=== PATIENT | female | born 1940 | race Caucasian/White ===

== ENCOUNTER 2020-09-17 02:24 | Emergency (ER) | payer MEDICARE, OTHER ==
[~2020-09-17 02:24] MED LIST: ASPIRIN CHEWABL81 MG PO; AUGMENTIN 875-1 EACH PO; FLAGYL500 MG PO; HYDRALAZINE HCL50 MG PO; LASIX40 MG PO; LIPITOR40 MG PO; LOPRESSOR100 MG PO; NORVASC5 MG PO; POTASSIUM CHLO10 MEQ PO; PROTONIX40 MG PO; TRANXENE T-TAB7.5 MG PO; ZESTRIL30 MG PO
[2020-09-17 03:55] LABS: HEMOGLOBIN 11.8 gm/dl (12.3-15.3); RED BLOOD COUNT 4.16 M/UL (4.00-5.10); WHITE BLOOD COUNT 9.1 K/UL (4.5-11.0)
[2020-09-17 04:18] LABS: BUN/CREATININE RATIO 17 (0-10)
[2020-09-17] MEDS ORDERED: ZOFRAN ODT 4 MG4 MG SL (06:19)
[2020-09-17] MEDS ORDERED: HYDROCODON-ACE1 EAC4 PO (06:19)
== END 2020-09-17 06:46 | disposition home or self-care (01) ==
LOC: ER1 02:24
PROVIDERS: Emergency Medicine
DX: K85.90 Acute pancreatitis without necrosis or infection, unspecified (principal); I10 Essential (primary) hypertension; E78.5 Hyperlipidemia, unspecified; J44.9 Chronic obstructive pulmonary disease, unspecified; Z90.49 Acquired absence of other specified parts of digestive tract; Z90.710 Acquired absence of both cervix and uterus; Z87.19 Personal history of other diseases of the digestive system
CPT/HCPCS: 80053; 81001; 83690; 85025; 87086; 96374; 96375; 99284; J2270; J2405; Q9967

== ENCOUNTER → 2022-02-02 | Outpatient (CLI) | payer OTHER ==
[~2022-02-02] MED LIST changes: +HYDROCODON-ACE1 EAC4 PO; +ZOFRAN ODT 4 MG4 MG SL
== END ==
LOC: KOH-I 08:00
DX: R10.30 Lower abdominal pain, unspecified (principal); K80.20 Calculus of gallbladder without cholecystitis without obstruction; I70.90 Unspecified atherosclerosis; M16.12 Unilateral primary osteoarthritis, left hip
CPT/HCPCS: 74176